=== PATIENT | female | born 1950 | race Caucasian/White ===

== ENCOUNTER 2019-10-05 15:59 | Emergency (ER) | payer OTHER ==
[~2019-10-05] VITALS: Ht 162.6 cm; Wt 65.8 kg
[2019-10-05] MEDS ORDERED: TENORMIN25 MG (16:12)
[2019-10-05] MEDS ORDERED: BUSPIRONE HCL10 MG (16:12)
[2019-10-05] MEDS ORDERED: LOSARTAN-HCTZ1 EACH (16:12)
[2019-10-05] MEDS ORDERED: FLUOXETINE HCL60 MG (16:12)
[2019-10-05] MEDS ORDERED: LIPITOR40 MG (16:13)
[2019-10-05] MEDS ORDERED: NEURONTIN300 MG (16:13)
== END 2019-10-06 00:09 | disposition home or self-care (01) ==
LOC: ER 15:59
DX: J45.998 Other asthma (principal)